=== PATIENT | female | born 1980 | race Asian ===

== ENCOUNTER 2018-12-25 08:56 | Outpatient (CLI) | payer OTHER ==
--- NOTE | 2018-12-25 10:38 | ULT ---
THYROID ULTRASOUND: DATE: 12/25/2018. COMPARISON: None. HISTORY: Hyperthyroidism, right-sided thyroid gland enlargement. TECHNIQUE: Multiplanar bolivar scale, sonographic imaging of the thyroid gland obtained. FINDINGS: The thyroid parenchyma is uniformly heterogeneous and hypervascular, the thyroid isthmus measuring 4 mm in AP dimension, the right lobe measuring 5.6 x 2.1 x 2.5 cm, and the left lobe measuring 5.2 x 2. 0 x 2.1 cm. No discrete thyroid nodule is noted. IMPRESSION: Heterogeneous enlarged and hyperemic thyroid gland with no discrete thyroid nodule seen. POS: [facility]
== END 2018-12-25 08:57 | disposition home or self-care (01) ==
LOC: BICULT 08:56
PROVIDERS: ATTEND Family Medicine
DX: E03.9 Hypothyroidism, unspecified (principal); E04.9 Nontoxic goiter, unspecified
CPT/HCPCS: 76536